=== PATIENT | female | born 1960 | race Two or more races ===

== ENCOUNTER 2017-08-21 07:23 | Day surgery (SDC) | payer BC ==
[~2017-08-21 07:23] MED LIST: LIDOCAINE 1% PF 2 ML VIAL. ID; MORPHINE SULFATE 2 MG/ML DISP.SYRIN. IV; ONDANSETRON PF 4 MG/2 ML VIAL. IV; PROCHLORPERAZINE 10 MG/2 ML VIAL. IV; fentaNYL PF VIAL 100 MCG/2 ML VIAL IV
[2017-08-21] MEDS ORDERED: SURGICEL HEMOSTAT 4X8 EACH. (07:32)
[2017-08-21] MEDS: IV RINGERS,LACTATED 1000ML 1,000 ML IV (08:02)
[2017-08-21 08:04] LABS: POC GLUCOSE 102 mg/dL (70-99)
[2017-08-21] MEDS ORDERED: ROCURONIUM 50 MG/5 ML VIAL. (08:33)
[2017-08-21] MEDS ORDERED: fentaNYL PF VIAL 250 MCG/5 ML VIAL (08:33)
[2017-08-21] MEDS: BUPIVAC MPF-EPI 0.75%-1:200000 30 ML VIAL. (09:40)
[2017-08-21] MEDS ORDERED: ONDANSETRON PF 4 MG/2 ML VIAL. (09:59)
[2017-08-21] MEDS ORDERED: DEXAMETHASONE SOD PHOS 20 MG/5 ML VIAL. (09:59)
[2017-08-21] MEDS ORDERED: PROPOFOL 20 ML IV ×2 (09:59→10:14)
[2017-08-21] MEDS ORDERED: SEVOFLURANE 31 TO 60 MINUTES. IH (10:00)
[2017-08-21] MEDS ORDERED: NEOSTIGMINE METHYLSULFATE 5 MG/5 ML SYRINGE. (10:08)
[2017-08-21] MEDS ORDERED: GLYCOPYRROLATE 1 MG/5 ML VIAL. (10:08)
[2017-08-21 10:30] LABS: POC GLUCOSE 146 mg/dL (70-99)
[2017-08-21] MEDS: HYDROmorphone 2 MG/ML VIAL IV (10:57)
[2017-08-21] MEDS ORDERED: oxyCODONE/APAP 5/325 1 TAB TABLET PO (11:00)
[2017-08-21] MEDS: oxyCODONE/APAP 5/325 1 TAB TABLET PO (11:29)
[2017-08-21] MEDS ORDERED: ceFAZolin 2GM PREMIX 2 GM/50 ML BAG IV (12:00)
== END 2017-08-21 12:08 | disposition home or self-care (01) ==
LOC: SURG 07:23
DX: K82.8 Other specified diseases of gallbladder (principal); K81.1 Chronic cholecystitis; I10 Essential (primary) hypertension; E11.9 Type 2 diabetes mellitus without complications; Z86.39 Personal history of other endocrine, nutritional and metabolic disease; Z98.51 Tubal ligation status
CPT/HCPCS: 47562; 82962; 88304; J0690; J1100; J1170; J2405; J2704; J2710; J3010; J3490; J7030

== ENCOUNTER → 2017-08-27 | Outpatient (CLI) | payer BC ==
[2017-08-27] MEDS: IOHEXOL 240 MG/ML 50ML VIAL. PO (10:19)
[2017-08-27] MEDS: IOHEXOL 300 MG/ML 100ML VIAL. IV (10:19)
== END | disposition home or self-care (01) ==
LOC: CT 09:03
DX: R10.9 Unspecified abdominal pain (principal); Z98.890 Other specified postprocedural states; Z90.49 Acquired absence of other specified parts of digestive tract
CPT/HCPCS: 74177; Q9966; Q9967

== ENCOUNTER → 2018-03-02 | Outpatient (CLI) | payer BC ==
[2018-03-02] MEDS: IOHEXOL 300 MG/ML 100ML VIAL. IV (10:56)
[2018-03-02] MEDS: IOHEXOL 240 MG/ML 50ML VIAL. PO (10:56)
== END | disposition home or self-care (01) ==
LOC: CT 09:40
DX: R59.9 Enlarged lymph nodes, unspecified (principal); I10 Essential (primary) hypertension; E11.9 Type 2 diabetes mellitus without complications; E66.9 Obesity, unspecified; J32.9 Chronic sinusitis, unspecified; Z87.440 Personal history of urinary (tract) infections; Z86.39 Personal history of other endocrine, nutritional and metabolic disease; Z90.49 Acquired absence of other specified parts of digestive tract; Z68.41 Body mass index [BMI] 40.0-44.9, adult
CPT/HCPCS: 74160; Q9966; Q9967

== ENCOUNTER → 2018-08-10 | Outpatient (CLI) | payer BC ==
[2017-08-21 12:04] VITALS: BP 121/58
[~2018-08-10] MED LIST changes: +CHOL500050 PO; -LIDOCAINE 1% PF 2 ML VIAL. ID; +LISI-373 PO; +METF500T16 PO; -MORPHINE SULFATE 2 MG/ML DISP.SYRIN. IV; -ONDANSETRON PF 4 MG/2 ML VIAL. IV; +OXYC1TAB15 PO; -PROCHLORPERAZINE 10 MG/2 ML VIAL. IV; -fentaNYL PF VIAL 100 MCG/2 ML VIAL IV
--- NOTE | 2018-08-10 14:52 | RAD ---
DATE: 08/10/2018 EXAM: DIGITAL SCREEN BILAT W/CAD HISTORY: Routine screening COMPARISON: 08/07/2017 This study was interpreted with the benefit of Computerized Aided Detection (CAD). Breast Density: FATTY The breast parenchyma is primarily fatty replaced. Breast parenchyma level density A. FINDINGS: No new or enlarging breast densities are seen. No suspicious microcalcifications are evident. IMPRESSION: Stable mammograms without evidence of malignancy. BI-RADS CATEGORY: 1 NEGATIVE RECOMMENDED FOLLOW-UP: 12M 12 MONTH FOLLOW-UP PQRS compliance statement: Patient information was entered into a reminder system with a target due date for the next mammogram. Mammography is a sensitive method for finding small breast cancers, but it does not detect them all and is not a substitute for careful clinical examination. A negative mammogram does not negate a clinically suspicious finding and should not result in delay in biopsying a clinically suspicious abnormality. "Our facility is accredited by the [employer] Mammography Program."
== END | disposition home or self-care (01) ==
LOC: MAMMO 09:43
PROVIDERS: ATTEND Nurse Practitioner Family
DX: Z12.31 Encounter for screening mammogram for malignant neoplasm of breast (principal)
CPT/HCPCS: 77067

== ENCOUNTER → 2018-10-05 | Outpatient (CLI) | payer BC ==
[2017-08-21 12:04] VITALS: BP 121/58
[2018-10-05 09:36] LABS: BASO % 0 % (0-3); BILIRUBIN,URINE NEGATIVE (NEG); CLARITY,URINE CLEAR; COLOR,URINE YELLOW; EOS # 0.1 x10^3/uL (0.0-0.7); EOS % 1 % (0-3); HEMATOCRIT 41.1 % (36.0-47.0); HEMOGLOBIN 13.8 g/dL (12.0-15.5); LYMPH % 40 % (24-48); MEAN CORPUSCULAR HEMOGLOBIN 29 pg (25-35); MEAN CORPUSCULAR HGB CONC 34 g/dL (31-37); MEAN CORPUSCULAR VOLUME 85 fL (79-100); MONO # 0.7 x10^3/uL (0.0-1.1); MONO % 7 % (0-9); NEUT # 5.3 x10^3uL (1.8-7.7); NEUT % 53 % (31-73); NITRITE,URINE NEGATIVE (NEG); PH,URINE 6.5; PLATELET COUNT 396 x10^3/uL (140-400); PROTEIN,URINE NEGATIVE (NEG-TRACE); RED BLOOD COUNT 4.82 x10^6/uL (3.50-5.40); RED CELL DISTRIBUTION WIDTH 13.4 % (11.5-14.5); UROBILINOGEN,URINE 0.2 mg/dL (0.2 mg/dL); WHITE BLOOD COUNT 10.1 x10^3/uL (4.0-11.0)
[2018-10-05 09:59] LABS: ALBUMIN 3.3 g/dL (3.4-5.0); ALBUMIN/GLOBULIN RATIO 0.7 (1.0-1.7); CALCIUM 9.2 mg/dL (8.5-10.1); CREATININE 0.8 mg/dL (0.6-1.0); GFR 73.9; TOTAL BILIRUBIN 0.3 mg/dL (0.2-1.0)
[2018-10-05 10:00] LABS: CHOLESTEROL/HDL RATIO 4.2
[2018-10-05 10:01] LABS: BACTERIA,URINE MANY /HPF (0-FEW); SQUAMOUS EPITHELIAL CELL,UR MANY /LPF
[2018-10-05 10:02] LABS: RBC,URINE OCC /HPF (0-2)
[2018-10-06 00:14] LABS: HEMOGLOBIN A1C 6.3 % (4.8-5.6)
== END | disposition home or self-care (01) ==
LOC: LAB 08:37
PROVIDERS: ATTEND Internal Medicine
DX: E11.9 Type 2 diabetes mellitus without complications (principal)
CPT/HCPCS: 36415; 80053; 80061; 81001; 82043; 83036; 84436; 84443; 85025; 87086